=== PATIENT | female | born 1990 | race Caucasian/White ===

== ENCOUNTER → 2016-08-14 | Outpatient (CLI) | payer BC, OTHER ==
[2016-08-14 15:47] LABS: FREE T4 (FREE THYROXINE) 0.87 ng/dL (0.93-1.71)
== END ==
LOC: LAB 10:27
PROVIDERS: ATTEND Physician Assistant Medical
DX: E03.9 Hypothyroidism, unspecified (principal)
CPT/HCPCS: 84439; 84443

== ENCOUNTER → 2016-11-19 | Outpatient (CLI) | payer OTHER | LOC: LAB 16:00 | DX: E03.9 Hypothyroidism, unspecified (principal) | CPT/HCPCS: 84443 ==